=== PATIENT | male | born 1960 | race Caucasian/White ===

== ENCOUNTER 2018-04-28 09:55 | Outpatient (CLI) | payer MEDICARE, BC ==
[~2018-04-28 09:55] MED LIST: AMBIEN10 M1 ORAL; CIALIS5 MG PO; DEXILANT60 MG ORAL; DIOVAN HCT 1601 EACH ORAL; STRIBILD TABLE1 EACH PO; TESTOSTERO200 MG/1 M IM; VALIUM10 MG ORAL
--- NOTE | 2018-04-28 14:39 | Diagnostic Imaging Report ---
Indication: Neck pain Technique: MRI examination of the cervical spine was performed in a 1.5 [employer] magnet. Sequences obtained include sagittal and axial T1 and T2 fast spin echo, and sagittal STIR. Comparison: none Findings: There is motion artifact which limits evaluation. Multilevel disc desiccation and narrowing moderate in degree demonstrated with associated endplate spur formation. Foramen magnum is unremarkable. C2-3 is unremarkable. C3-4 shows bilateral foraminal stenosis and mild central stenosis also suspected. Similar findings at C4-5 with desiccation and disc narrowing moderate foraminal stenosis and probable mild central stenosis. C5-6 with similar findings with moderate to severe right foraminal stenosis, moderate left foraminal stenosis and probable mild central stenosis. C6-7 with central stenosis moderate to severe bilateral foraminal stenosis. C7-T1 demonstrating no central or foraminal stenosis. Bone marrow signal normal. Soft tissues are unremarkable. The cord exhibits relatively normal appearance and signal. IMPRESSION: Multilevel central spinal canal stenosis and foraminal stenosis as described above Limited study due to motion
--- NOTE | 2018-04-28 14:47 | Diagnostic Imaging Report ---
Indication: Shoulder pain Technique: MRI of the right shoulder obtained in a 1.5 [employer] magnet. Pulse sequences obtained include axial and coronal proton fast spin-echo with fat saturation, sagittal T1 fast spin-echo, sagittal and coronal T2 fast spin-echo with fat saturation. Findings: There is complete rupture of the supraspinatus tendon which is retracted proximally by a few centimeters. Infraspinatus tendon is also completely ruptured. A portion of the subscapularis tendon is also ruptured. The muscle bellies of both supraspinatus and infraspinatus are moderately atrophic and fatty replaced. The transverse ligament is torn and the bicipital tendon is slightly displaced out of the bicipital groove. The biceps anchor is difficult to visualize and not well seen. There is diffuse degeneration of the glenoid labrum which is abnormal in morphology and signal. Small superior anterior labral cysts are noted. There is a severe arthrosis of the acromioclavicular joint which is hypertrophic with spurring and subchondral signal abnormalities, capsular redundancy. There is a type III acromion noted with slight inferior hooking of the anterior aspect of the acromion. The humeral head is high riding and abuts the undersurface of the acromion. Marginal enthesophyte formation noted involving the glenohumeral joint. Bone marrow signal is heterogeneous. 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 Partial rupture of the subscapularis. Tear of the transverse ligament and displacement of bicipital tendon. Biceps anchor not well demonstrated. Chronic degeneration and tear of the glenoid labrum with paralabral cyst formation. 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 Type III acromion
== END 2018-04-28 11:55 | disposition home or self-care (01) ==
LOC: MRI 09:55
DX: M54.12 Radiculopathy, cervical region (principal); M19.011 Primary osteoarthritis, right shoulder; S43.401A Unspecified sprain of right shoulder joint, initial encounter; X58.XXXA Exposure to other specified factors, initial encounter; Y92.9 Unspecified place or not applicable
CPT/HCPCS: 72141